=== PATIENT | female | born 1950 | race African-American/Black ===

== ENCOUNTER 2017-08-25 07:33 | Emergency (ER) | payer OTHER, MEDICAID ==
[~2017-08-25] VITALS: Ht 175.3 cm; Wt 78.0 kg
[~2017-08-25 07:33] MED LIST: KEPP500 PO
[2017-08-25] MEDS ORDERED: SODIUM CHLORIDE 0.9% 1,000 ML IV ONE (07:59)
[2017-08-25] MEDS ORDERED: FAMOTIDINE 20MG/2ML VIAL IV STA (07:59)
[2017-08-25] MEDS ORDERED: MAGNESIUM/ALUMINUM HYDROXIDE/SIMETHICONE 30ML UDC PO STA (07:59)
[2017-08-25] MEDS ORDERED: ONDANSETRON HCL 4MG/2ML VIAL IV STA (07:59)
[2017-08-25 08:22] LABS: BASOPHILS % 0.6 % (0.0-2.0); CHLORIDE 108 mEq/L (98-107); HEMATOCRIT. 43.2 % (36.0-48.0); HEMOGLOBIN. 14.9 g/dL (12.0-16.0); LYMPHOCYTES % 27.1 % (20.0-50.0); MEAN CORPUSCULAR HEMOGLOBIN 33.7 pg (28.0-32.0); MEAN CORPUSCULAR VOLUME 97.9 fL (81.0-99.0); MEAN PLATELET VOLUME 7.1 fl (7.4-10.4); NEUTROPHILS % 64.3 % (40.0-76.0); PLATELET 265 x1000/uL (130-400); RED BLOOD CELL COUNT 4.42 mill/uL (4.2-5.4); RED CELL DISTRIBUTION WIDTH 12.9 % (11.6-14.6)
[2017-08-25 08:23] LABS: INR 1.1; PROTHROMBIN TIME 10.9 sec (9.4-11.6)
[2017-08-25] MEDS ORDERED: IOHEXOL-300 100 ML BOTTLE ONE (10:15)
[2017-08-25 11:39] LABS: CLARITY URINE CLEAR (CLEAR); COLOR URINE YELLOW (YELLOW); KETONES URINE NEGATIVE (NEGATIVE); LEUKOCYTE ESTERASE URINE NEGATIVE (NEGATIVE); NITRITE URINE NEGATIVE (NEGATIVE); OCCULT BLOOD URINE NEGATIVE (NEGATIVE); PH URINE 6.5 (4.5-8.0); PROTEIN URINE 1+ (NEGATIVE); SPECIFIC GRAVITY URINE 1.076 (1.005-1.030)
[2017-08-25] MEDS ORDERED: HYDROMORPHONE HCL/PF 2MG/ML CPJ IV ONE (13:15)
[2017-08-25 14:00] VITALS: BP 105/62
== END 2017-08-25 14:42 | disposition home or self-care (01) ==
LOC: ER 07:41
DX: K52.9 Noninfective gastroenteritis and colitis, unspecified (principal); K57.30 Diverticulosis of large intestine without perforation or abscess without bleeding; K42.9 Umbilical hernia without obstruction or gangrene; N83.202 Unspecified ovarian cyst, left side; N83.201 Unspecified ovarian cyst, right side; K76.89 Other specified diseases of liver; M19.90 Unspecified osteoarthritis, unspecified site; M54.30 Sciatica, unspecified side; K64.4 Residual hemorrhoidal skin tags; F17.200 Nicotine dependence, unspecified, uncomplicated; E83.52 Hypercalcemia; E87.8 Other disorders of electrolyte and fluid balance, not elsewhere classified; Z90.49 Acquired absence of other specified parts of digestive tract; Z98.890 Other specified postprocedural states
CPT/HCPCS: 36415; 74177; 80053; 81003; 83690; 85025; 85610; 96361; 96374; 96375; 99285; J1170; J2405; J3490; J7030; Q9967; A4315

== ENCOUNTER 2017-11-03 10:01 | Inpatient (IN) | payer OTHER, MEDICAID ==
[~2017-11-03] VITALS: Ht 160 cm; Wt 64.0 kg
[2017-11-03] MEDS ORDERED: IPRATROPIUM BROMIDE (0.02%) 0.5MG/2.5ML NEB HHN STA (10:07)
[2017-11-03] MEDS ORDERED: METHYLPREDNISOLONE SOD SUCC 125 MG/2 ML VIAL IV STA (10:07)
[2017-11-03] MEDS ORDERED: MAGNESIUM 2 G PREMIX 50 ML IV ONE (10:15)
[2017-11-03 10:58] LABS: BASOPHILS % 1.2 % (0.0-2.0); EOSINOPHILS % 1.1 % (0.0-5.0); HEMATOCRIT. 45.4 % (36.0-48.0); HEMOGLOBIN. 15.1 g/dL (12.0-16.0); LYMPHOCYTES % 32.3 % (20.0-50.0); MEAN CORPUSCULAR HEMOGLOBIN 33.3 pg (28.0-32.0); MEAN PLATELET VOLUME 7.3 fl (7.4-10.4); MONOCYTES % 6.7 % (2.0-8.0); NEUTROPHILS % 58.7 % (40.0-76.0); PLATELET 326 x1000/uL (130-400); RED BLOOD CELL COUNT 4.54 mill/uL (4.2-5.4); RED CELL DISTRIBUTION WIDTH 13.9 % (11.6-14.6)
[2017-11-03] MEDS: ALBUTEROL (0.083%) 2.5MG/3ML NEB HHN SCH ×2 (10:58→11:49)
[2017-11-03 11:06] LABS: CHLORIDE 102 mEq/L (98-107)
[2017-11-03] MEDS ORDERED: ALBUTEROL (0.083%) 2.5MG/3ML NEB HHN STA (11:40)
[2017-11-03] MEDS ORDERED: ACETAMINOPHEN 325MG TABLET PO ONE (13:15)
[2017-11-03 13:34] LABS: BG BASE EXCESS 2.1 mmol/L (-2.0-2.0); BG CARBOXYHEMOGLOBIN 2.3 % (0.5-1.5); BG DEOXYHEMOGLOBIN 4.2 % (0.0-5.0); BG FRACTION INSPIRED OXYGEN 32; BG HCO3 ACT 24.1 mmol/L (22.0-26.0); BG METHEMOGLOBIN 0.2 % (0.0-1.5); BG OXYGEN SATURATION 95.7 % (92.0-98.5); BG OXYHEMOGLOBIN 93.3 % (94.0-97.0); BG PCO2 30.2 mmHg (35.0-45.0); BG PH 7.519 (7.350-7.450); BG PO2 73.9 mmHg (75.0-100.0); BG SAMPLE SITE RIGHT BRACHIAL; BG VENT MODE NASAL CANNULA
[2017-11-03] MEDS ORDERED: ACETAMINOPHEN 325MG TABLET PO PRN (15:00)
[2017-11-03] MEDS ORDERED: ONDANSETRON HCL 4MG/2ML INJ IV PRN (15:00)
[2017-11-03] MEDS ORDERED: DIPHENHYDRAMINE 50MG/ML VIAL IV PRN (15:00)
[2017-11-03] MEDS ORDERED: MAGNESIUM/ALUMINUM HYDROXIDE/SIMETHICONE 30ML UDC PO PRN (15:00)
[2017-11-03] MEDS ORDERED: IPRATROPIUM/ALBUTEROL 0.5-3(2.5)MG/3ML NEB INH PRN (15:00)
[2017-11-03] MEDS ORDERED: CLONIDINE 0.1MG TABLET PO PRN (15:00)
[2017-11-03] MEDS ORDERED: ACETAMINOPHEN 650MG SUPP PR PRN (15:00)
[2017-11-03 15:56] LABS: D-DIMER 0.23 mg/L FEU (<0.50)
[2017-11-03 15:57] LABS: AMMONIA 10 uMol/L (<32)
[2017-11-03 16:41] LABS: HEPATITIS B SURFACE ANTIGEN NEGATIVE
[2017-11-03 17:09] LABS: HEPATITIS B CORE AB IGM NEGATIVE
[2017-11-03 17:11] LABS: HEPATITIS A AB IGM NEGATIVE (NEGATIVE)
[2017-11-03] MEDS: HYDROCODONE/ACETAMINOPHEN 5/325MG TABLET PO PRN (17:27)
[2017-11-03] MEDS ORDERED: METHYLPREDNISOLONE SOD SUCC 125 MG/2 ML VIAL IV SCH (19:45)
[2017-11-03 20:00] VITALS: BP 176/89
[2017-11-03] MEDS ORDERED: ENOXAPARIN 40MG/0.4ML SYR SUBCUT SCH (20:00)
[2017-11-03] MEDS: IPRATROPIUM/ALBUTEROL 0.5-3(2.5)MG/3ML NEB INH SCH (20:33)
[2017-11-03] MEDS: METHYLPREDNISOLONE SOD SUCC 125 MG/2 ML VIAL IV SCH (20:51)
[2017-11-03] MEDS ORDERED: LEVOFLOXACIN 500MG PREMIX 100 ML IV SCH (21:00)
[2017-11-03] MEDS ORDERED: FAMOTIDINE 20MG TABLET PO SCH (21:00)
[2017-11-03] MEDS ORDERED: NA PHOS,M-B/NA PHOS,DI-BA ENEMA 118ML PR PRN (21:00)
[2017-11-03 23:01] VITALS: BP 176/89
[2017-11-03 23:54] VITALS: BP 150/65
[2017-11-04] MEDS: HYDROCODONE/ACETAMINOPHEN 5/325MG TABLET PO PRN (00:10)
[2017-11-04] MEDS ORDERED: PANTOPRAZOLE SODIUM 40 MG/VIAL IV NR (00:30)
[2017-11-04] MEDS ORDERED: NAPR220C7 PO (00:48)
[2017-11-04] MEDS ORDERED: ESCI20TA36 PO (00:48)
[2017-11-04] MEDS ORDERED: ASCO-339 PO (00:48)
[2017-11-04] MEDS ORDERED: HYDR50SY PO ×2 (00:48)
[2017-11-04] MEDS ORDERED: QUET400T53 PO (00:48)
[2017-11-04] MEDS ORDERED: MIRT45TA4 PO (00:48)
[2017-11-04] MEDS ORDERED: BACL-141 PO (00:48)
[2017-11-04] MEDS ORDERED: ONDA8TAB9 PO (00:48)
[2017-11-04] MEDS ORDERED: ALBU18HF2 IH (00:48)
[2017-11-04] MEDS ORDERED: FERR325T6 PO (00:48)
[2017-11-04] MEDS ORDERED: ASCO100T12 PO (00:48)
[2017-11-04] MEDS ORDERED: ALBU90AE IH (00:48)
[2017-11-04] MEDS ORDERED: GABA800T97 PO (00:48)
[2017-11-04] MEDS ORDERED: CHOL20009 PO (00:48)
[2017-11-04] MEDS ORDERED: METR500T4 PO (00:48)
[2017-11-04] MEDS ORDERED: CIPR-263 PO (00:48)
[2017-11-04] MEDS: DEXT 5%/0.45% NACL 1000ML 1,000 ML IV SCH ×2 (00:55→17:46)
[2017-11-04] MEDS: IPRATROPIUM/ALBUTEROL 0.5-3(2.5)MG/3ML NEB INH SCH ×4 (01:03→20:16)
[2017-11-04 01:59] LABS: CLARITY URINE CLEAR (CLEAR); COLOR URINE YELLOW (YELLOW); KETONES URINE NEGATIVE (NEGATIVE); LEUKOCYTE ESTERASE URINE NEGATIVE (NEGATIVE); NITRITE URINE NEGATIVE (NEGATIVE); OCCULT BLOOD URINE NEGATIVE (NEGATIVE); PROTEIN URINE NEGATIVE (NEGATIVE); SPECIFIC GRAVITY URINE 1.012 (1.005-1.030); UROBILINOGEN URINE 0.2 E.U./dL (0.2-1.0)
[2017-11-04 02:03] LABS: HEMATOCRIT. 43.7 % (36.0-48.0); HEMOGLOBIN. 14.6 g/dL (12.0-16.0); MEAN CORPUSCULAR HEMOGLOBIN 32.8 pg (28.0-32.0); MEAN CORPUSCULAR VOLUME 98.5 fL (81.0-99.0); PLATELET 339 x1000/uL (130-400); RED BLOOD CELL COUNT 4.43 mill/uL (4.2-5.4); RED CELL DISTRIBUTION WIDTH 13.7 % (11.6-14.6)
[2017-11-04 03:01] LABS: *AMPHETAMINES SCREEN URINE NEGATIVE (NEGATIVE)
[2017-11-04 03:02] LABS: *BARBITURATES SCREEN URINE NEGATIVE (NEGATIVE); *BENZODIAZEPINES SCREEN URINE NEGATIVE (NEGATIVE); *COCAINE SCREEN URINE NEGATIVE (NEGATIVE); CANNABINOID URINE SCREEN NEGATIVE (NEGATIVE); METHADONE URINE SCREEN NEGATIVE (NEGATIVE); OPIATES URINE SCREEN PRESUMTIVE POSITIVE (NEGATIVE); PHENCYCLIDINE URINE SCREEN NEGATIVE (NEGATIVE)
[2017-11-04 04:00] VITALS: BP 144/93
[2017-11-04] MEDS: METHYLPREDNISOLONE SOD SUCC 125 MG/2 ML VIAL IV SCH ×2 (05:12→12:59)
[2017-11-04 07:22] LABS: HEMATOCRIT. 43.5 % (36.0-48.0); HEMOGLOBIN. 14.6 g/dL (12.0-16.0); MEAN CORPUSCULAR HEMOGLOBIN 33.1 pg (28.0-32.0); MEAN CORPUSCULAR VOLUME 98.9 fL (81.0-99.0); MEAN PLATELET VOLUME 7.2 fl (7.4-10.4); PLATELET 339 x1000/uL (130-400); RED BLOOD CELL COUNT 4.39 mill/uL (4.2-5.4); RED CELL DISTRIBUTION WIDTH 13.7 % (11.6-14.6)
[2017-11-04 07:27] LABS: CHLORIDE 103 mEq/L (98-107)
[2017-11-04 07:58] LABS: PLATELET ESTIMATE NORMAL
[2017-11-04 08:00] VITALS: BP 170/96
[2017-11-04] MEDS: NICOTINE 14MG PATCH TD SCH (08:27)
[2017-11-04] MEDS: PANTOPRAZOLE SODIUM 40 MG/VIAL IV SCH (08:27)
[2017-11-04 11:57] VITALS: BP 108/74
[2017-11-04] MEDS ORDERED: LIDOCAINE HCL/PF 1% 2ML VIAL ONE ×2 (13:43→15:10)
[2017-11-04 16:00] VITALS: BP 111/74
[2017-11-04 16:03] LABS: PLATELET ESTIMATE NORMAL
[2017-11-04 16:04] LABS: BG BASE EXCESS -2.1 mmol/L (-2.0-2.0); BG CARBOXYHEMOGLOBIN 0.5 % (0.5-1.5); BG DEOXYHEMOGLOBIN 5.1 % (0.0-5.0); BG HCO3 ACT 20.4 mmol/L (22.0-26.0); BG METHEMOGLOBIN 0.2 % (0.0-1.5); BG OXYGEN SATURATION 94.9 % (92.0-98.5); BG OXYHEMOGLOBIN 94.2 % (94.0-97.0); BG PCO2 29.2 mmHg (35.0-45.0); BG PH 7.462 (7.350-7.450); BG PO2 72.6 mmHg (75.0-100.0); BG SAMPLE SITE LEFT RADIAL; BG TOTAL HEMOGLOBIN 14.5 g/dL (12.0-18.0); BG VENT MODE ROOM AIR
[2017-11-04] MEDS ORDERED: LEVOFLOXACIN 500MG PREMIX 100 ML IV SCH (18:00)
[2017-11-04 20:00] VITALS: BP 104/64
[2017-11-04 20:23] LABS: HEMATOCRIT 39.8 % (36.0-48.0); HEMOGLOBIN 13.2 g/dL (12.0-16.0)
[2017-11-04] MEDS: METHYLPREDNISOLONE SOD SUCC 40 MG/ML VIAL IV SCH (21:30)
[2017-11-05] VITALS: BP 110/77
[2017-11-05] MEDS: DEXT 5%/0.45% NACL 1000ML 1,000 ML IV SCH ×2 (01:30→07:28)
[2017-11-05] MEDS: IPRATROPIUM/ALBUTEROL 0.5-3(2.5)MG/3ML NEB INH SCH ×3 (01:48→14:39)
[2017-11-05 03:55] VITALS: BP 113/65
[2017-11-05] MEDS: METHYLPREDNISOLONE SOD SUCC 40 MG/ML VIAL IV SCH ×2 (05:36→15:07)
[2017-11-05 06:42] LABS: PARTIAL THROMBOPLASTIN TIME 27.5 sec (23.4-31.0); PROTHROMBIN TIME 9.9 sec (9.1-11.1)
[2017-11-05 06:46] LABS: HEMATOCRIT. 39.5 % (36.0-48.0); HEMOGLOBIN. 13.1 g/dL (12.0-16.0); MEAN CORPUSCULAR VOLUME 99.5 fL (81.0-99.0); MEAN PLATELET VOLUME 7.4 fl (7.4-10.4); PLATELET 310 x1000/uL (130-400); RED BLOOD CELL COUNT 3.97 mill/uL (4.2-5.4); RED CELL DISTRIBUTION WIDTH 13.6 % (11.6-14.6)
[2017-11-05 07:44] LABS: CHLORIDE 108 mEq/L (98-107)
[2017-11-05 07:47] VITALS: BP 108/72
[2017-11-05] MEDS: NICOTINE 14MG PATCH TD SCH (08:22)
[2017-11-05] MEDS: PANTOPRAZOLE SODIUM 40 MG/VIAL IV SCH (08:22)
[2017-11-05] MEDS ORDERED: SIMETHICONE 40 MG/0.6 ML 30ML ONE (09:51)
[2017-11-05 10:54] LABS: PLATELET ESTIMATE NORMAL
[2017-11-05 11:12] VITALS: BP 110/72
[2017-11-05] MEDS ORDERED: MIDAZOLAM HCL 5 MG/5 ML VIAL ONE (12:02)
[2017-11-05] MEDS ORDERED: FENTANYL CITRATE/PF 50MCG/ML 2ML VIAL ONE (12:02)
[2017-11-05] MEDS ORDERED: MIDAZOLAM HCL 5 MG/5 ML VIAL IV ONE (12:12)
[2017-11-05] MEDS ORDERED: FENTANYL CITRATE/PF 50MCG/ML 2ML VIAL IV ONE (12:13)
[2017-11-05] MEDS ORDERED: OMEPRAZOLE 20MG CAPSULE EXTENDED RELEASE PO NR (12:45)
[2017-11-05 15:09] VITALS: BP 115/70
[2017-11-05 15:44] VITALS: BP 112/70
[2017-11-05] MEDS ORDERED: SUCRALFATE 1 G/10 ML UDC PO SCH (17:20)
[2017-11-06] MEDS ORDERED: OMEPRAZOLE 20MG CAPSULE EXTENDED RELEASE PO SCH (07:20)
== END 2017-11-05 18:30 | disposition home or self-care (01) | DRG 380 ==
LOC: ER 10:57 → 6WST 12:28 → EDBEDREQTM 12:57 → EDBEDREQ 12:57 → SUPCPDRO 14:27 → EDBEDREQSVC 16:55 → ENRESERV 17:22
PROVIDERS: ADMIT Internal Medicine; ATTEND Internal Medicine
PROC: 5A09357 Assistance with Respiratory Ventilation, Less than 24 Consecutive Hours, Continuous Positive Airway Pressure (ICD-10-PCS; 2017-11-03)
PROC: 0DB68ZX Excision of Stomach, Via Natural or Artificial Opening Endoscopic, Diagnostic (ICD-10-PCS; 2017-11-05)
PROC: 0DB38ZX Excision of Lower Esophagus, Via Natural or Artificial Opening Endoscopic, Diagnostic (ICD-10-PCS; principal; 2017-11-05 11:30)
DX: K22.11 Ulcer of esophagus with bleeding (principal); J18.9 Pneumonia, unspecified organism; J44.0 Chronic obstructive pulmonary disease with (acute) lower respiratory infection; J45.901 Unspecified asthma with (acute) exacerbation; J44.1 Chronic obstructive pulmonary disease with (acute) exacerbation; E83.52 Hypercalcemia; I10 Essential (primary) hypertension; M19.90 Unspecified osteoarthritis, unspecified site; T38.0X5A Adverse effect of glucocorticoids and synthetic analogues, initial encounter; Y92.89 Other specified places as the place of occurrence of the external cause; B19.20 Unspecified viral hepatitis C without hepatic coma; D64.9 Anemia, unspecified; F17.200 Nicotine dependence, unspecified, uncomplicated; G89.4 Chronic pain syndrome; I77.810 Thoracic aortic ectasia; K44.9 Diaphragmatic hernia without obstruction or gangrene; Z87.01 Personal history of pneumonia (recurrent); Z90.49 Acquired absence of other specified parts of digestive tract; Z91.19 Patient's noncompliance with other medical treatment and regimen; F19.11 Other psychoactive substance abuse, in remission; K29.60 Other gastritis without bleeding
CPT/HCPCS: 36415; 36600; 71045; 80053; 80305; 81003; 82140; 82375; 82805; 83036; 83880; 83970; 84484; 85014; 85018; 85025; 85379; 85610; 85730; 86677; 86705; 86709; 86803; 87040; 87086; 87340; 88305; 93005; 94640; 94660; 96365; 96366; 96375; 97116; 97162; 97530; 99285; C1893; C9113; G0482; J1650; J1956; J2250; J2405; J2920; J2930; J3010; J3475; J3490; J7050; J7611; J7620